=== PATIENT | male | born 1960 | race Caucasian/White ===

== ENCOUNTER 2017-12-16 11:12 | Day surgery (SDC) | payer BC ==
[2017-12-16] MEDS ORDERED: Ropivacaine 0.5% 5 MG/ML 30 ML SDV ONE (12:04)
[2017-12-16] MEDS ORDERED: Iopamidol 408 MG/ML 50 ML SDV ONE (12:04)
[2017-12-16] MEDS ORDERED: Lidocaine 2% 5 ML SDV ONE (12:04)
[2017-12-16] MEDS ORDERED: Betamethasone Acetate/Betamethasone Sod Phosphate 30 MG/5 ML MDV ONE (12:04)
--- NOTE | 2017-12-17 09:23 | OR ---
SURGEON: Manisha Wild D.O. DATE OF PROCEDURE: 12/16/2017 OR STAFF PRESENT: 1. Aniya Bloom RN. 2. Gómez Marin RT. WOUND CLASS: I PREOPERATIVE DIAGNOSES: 1. Lumbar degenerative disk disease. 2. Lumbar radiculopathy. 3. Lumbar spinal stenosis. 4. Lumbar spondylosis. POSTOPERATIVE DIAGNOSES: 1. Lumbar degenerative disk disease. 2. Lumbar radiculopathy. 3. Lumbar spinal stenosis. 4. Lumbar spondylosis. PROCEDURES PERFORMED: 1. Caudal epidural steroid injection. 2. Fluoroscopic guidance for needle placement. 3. Local with oral Valium for sedation. SCREENING QUESTIONS: The patient answered "no" to all of the following questions: 1. Are you allergic to latex? 2. Do you have a bleeding disorder? 3. Do you have any current local or systemic infections? 4. Are you taking any anti-inflammatories or blood thinners? 5. Do you have any joint replacements, heart valve replacements, or a pacemaker? DESCRIPTION OF PROCEDURE: The patient had the procedure thoroughly explained including all possible risks, benefits and alternatives. Consent was signed in my clinic indicating understanding and willingness to proceed. The patient presented to [facility] [place] and was escorted to the dressing room to disrobe and change into a hospital gown. Preoperative vital signs were taken and stable. The patient reported that Valium was taken prior to the procedure. The patient was brought back to the procedure room and placed in the prone position on the procedure room table. A pillow was placed under the hips in order to flatten the lumbar lordosis. The back was prepped with ChloraPrep and sterilely draped. All personnel in the operating room were dressed in appropriate attire including surgical scrubs, head and shoe covers. This was to ensure sterility while in the treatment room. During the time fluoroscopy was in use, all personnel in the operating room wore lead corrales with thyroid collars. Sterile technique was used throughout the procedure. The patient was awake and conversant throughout the procedure. There was no evidence of infection at the site of needle insertion. Skeletal landmarks were identified under fluoroscopy for the caudal epidural. Skin was anesthetized with 2% lidocaine with a sterile 27-gauge 1.5 inch needle. Then a 20-gauge Tuohy epidural needle was placed in the epidural space with loss of resistance technique under fluoroscopic guidance. No heme, cerebrospinal fluid, or paresthesias were noted. Isovue-200 contrast dye was injected in 0.2 cubic centimeter increments and seen to outline the epidural space in both AP and lateral views. There was no intravascular flow pattern observed under live fluoroscopy. Then 12 milligrams of Celestone was slowly injected after negative aspiration. The patient tolerated the procedure well. Vital signs were stable during and after the procedure. The staff escorted the patient to the recovery area and the patient was released in stable condition after a brief stay in the recovery room monitored by the nurse. The patient was given both oral and written discharge and follow up instructions with recommendation to follow up given for 2-3 weeks. The patient voiced understanding including understanding of those signs and symptoms that would require emergency care. The patient knows how to contact the office if there are any additional problems or questions in the meantime. PREOPERATIVE PAIN: 3-9/10 POSTOPERATIVE PAIN: /10 FOLLOW UP: Follow up in the Pain Clinic in 3 weeks. JITENDRA / KWAKU /[id number] JOVANNA
== END 2017-12-16 13:15 | disposition home or self-care (01) ==
LOC: MW.SDS 11:12
PROVIDERS: ATTEND Anesthesiology
DX: M51.16 Intervertebral disc disorders with radiculopathy, lumbar region (principal); M48.061 Spinal stenosis, lumbar region without neurogenic claudication; M47.26 Other spondylosis with radiculopathy, lumbar region; G89.29 Other chronic pain; M54.5 Low back pain; I10 Essential (primary) hypertension; E11.9 Type 2 diabetes mellitus without complications; E66.01 Morbid (severe) obesity due to excess calories; Z68.42 Body mass index [BMI] 45.0-49.9, adult; E78.00 Pure hypercholesterolemia, unspecified; Z79.84 Long term (current) use of oral hypoglycemic drugs; Z79.899 Other long term (current) drug therapy; Z88.8 Allergy status to other drugs, medicaments and biological substances
CPT/HCPCS: 62323; J0702; J2795; Q9966

== ENCOUNTER 2018-05-04 06:51 | Day surgery (SDC) | payer BC ==
[~2018-05-04 06:51] MED LIST: Lactated Ringers 1,000 ML IV SCH
[2018-05-04] MEDS ORDERED: Propofol 200 MG/20 ML SDV ONE (07:37)
[2018-05-04] MEDS ORDERED: Midazolam 1 MG/ML 2 ML SDV ONE (07:37)
[2018-05-04] MEDS ORDERED: fentaNYL 250 MCG/5 ML SDV ONE (07:37)
[2018-05-04] MEDS ORDERED: Lidocaine 1% 0 ML ONE (07:42)
[2018-05-04] MEDS ORDERED: Lidocaine 1% 20 ML MDV ONE (07:44)
--- NOTE | 2018-05-04 07:59 | PCM.PREANE ---
Preanesthetic Assessment - Anesthesia/Transfusion/Family Hx Anesthesia History: Prior Anesthesia Without Reaction Family History of Anesthesia Reaction: No Transfusion History: No Prior Transfusion(s) - Review of Systems General: No Symptoms Pulmonary: No Symptoms Cardiovascular: No Symptoms Gastrointestinal: No Symptoms Neurological: No Symptoms Other: Reports: None - Physical Assessment NPO Status Date: 05/03/18 NPO Status Time: 21:30 O2 Sat by Pulse Oximetry: 95 Respiratory Rate: 18 Vital Signs: Last Vital Signs Temp 95.7 F 05/04/18 07:15 Pulse 76 05/04/18 07:15 Resp 18 05/04/18 07:15 BP 146/91 H 05/04/18 07:15 Pulse Ox 95 05/04/18 07:15 Height: 6 ft 1 in Weight: 158.757 kg ASA Class: 2 Mental Status: Alert & Oriented x3 Airway Class: Mallampati = 2 Dentition: Reports: Normal Dentition ROM/Head Extension: Full Lungs: Clear to Auscultation, Normal Respiratory Effort Cardiovascular: Regular Rate, Regular Rhythm - Allergies Allergies/Adverse Reactions: Allergies Allergy/AdvReac Type Severity Reaction Status Date / Time meloxicam Allergy Rash Verified 04/29/18 10:06 - Anesthesia Plan Pre-Op Medication Ordered: None - Acknowledgements Anesthesia Type Planned: General Anesthesia Pt an Appropriate Candidate for the Planned Anesthesia: Yes Alternatives and Risks of Anesthesia Discussed w Pt/Guardian: Yes Pt/Guardian Understands and Agrees with Anesthesia Plan: Yes Additional Comments: PMH: hld, htn, dm2-on metformin, morbid obesity with bmi=46, denies jolynn sx, PLAN: ga-lma PreAnesthesia Questionnaire HEENT History: Reports: Other (See Below) Other HEENT History: wears glasses Cardiovascular History: Reports: High Cholesterol, Hypertension Respiratory History: Reports: None Gastrointestinal History: Reports: Colon Polyp Other Gastrointestinal History: being treated for colitis Genitourinary History: Reports: None Musculoskeletal History: Reports: Arthritis, Other (See Below) Other Musculoskeletal History: DDD, intermittent back pain Neurological History: Reports: Migraines Psychiatric History: Reports: None Endocrine/Metabolic History: Reports: Obesity/BMI 30+ Other Endocrine/Metabolic History: " pre diabetic" Hematologic History: Reports: None Immunologic History: Reports: None Oncologic (Cancer) History: Reports: None Dermatologic History: Reports: None - Past Surgical History Head Surgeries/Procedures: Reports: None HEENT Surgical History: Reports: Myringotomy w Tube(s) GI Surgical History: Reports: Colonoscopy Musculoskeletal Surgical History: Reports: Carpal Tunnel Other Musculoskeletal Surgeries/Procedures:: hx radha CTR - SUBSTANCE USE Smoking Status *Q: Never Smoker Recreational Drug Use History: No - HOME MEDS Home Medications: Home Meds Hydrochlorothiazide/Lisinopril [Lisinopril/HCTZ 10-12.5 MG] 1 tab PO DAILY 08/01 [History] atorvaSTATin Calcium [Atorvastatin Calcium] 40 mg PO DAILY 08/01/14 [History] Pedi Multivit #22/Vit D3/Vit K [Multivitamins Chewables Tablet] 1 tab CHEW DAILY 02/01/16 [History] Budesonide [Budesonide EC] 3 tab PO DAILY 04/29/18 [History] Diclofenac Sodium [Voltaren] 1 applic TOP ASDIRECTED PRN 04/29/18 [History] Lidocaine/Prilocaine [Lidocaine-Prilocaine Cream] 1 applic TOP ASDIRECTED PRN [History] metFORMIN HCl [Metformin HCl] 500 mg PO BID 04/29/18 [History] - CURRENT (IN HOUSE) MEDS Current Meds: Current Medications Hydrocodone Bitart/Acetaminophen ([place] 325-5 Mg) 1 - 2 tab PO Q4H PRN PRN Reason: Pain Cefazolin Sodium/Dextrose 2 gm (/ Premix) 50 mls @ 100 mls/hr IV ONCALL TONYA Lactated Ringer's (Ringers, Lactated) 1,000 mls @ 100 mls/hr IV ASDIRECTED [facility] Last Admin: 05/04/18 07:20 Dose: 100 mls/hr Discontinued Medications Fentanyl (Sublimaze) Confirm Administered Dose 250 mcg .ROUTE .STK-MED ONE Stop: 05/04/18 07:38 Lidocaine HCl (Xylocaine-Mpf 1%) Confirm Administered Dose 5 mls @ as directed .ROUTE .STK-MED ONE Stop: 05/04/18 07:37 Lidocaine HCl (Xylocaine-Mpf 1%) Confirm Administered Dose 10 mls @ as directed .ROUTE .STK-MED ONE Stop: 05/04/18 07:43 Lidocaine HCl (Xylocaine 1%) Confirm Administered Dose 20 ml .ROUTE .STK-MED ONE Stop: 05/04/18 07:45 Midazolam HCl (Versed 1 Mg/Ml) Confirm Administered Dose 2 mg .ROUTE .STK-MED ONE Stop: 05/04/18 07:38 Propofol (Diprivan 20 Ml) Confirm Administered Dose 200 mg .ROUTE .STK-MED ONE Stop: 05/04/18 07:38
[2018-05-04] MEDS ORDERED: Acetaminophen/HYDROcodone 325-5 MG Tab PO PRN (08:00)
[2018-05-04] MEDS ORDERED: ceFAZolin 2 GM in Premix Bag 1 BAG IV SCH (08:00)
[2018-05-04] MEDS ORDERED: ceFAZolin 1 GM Vial ONE (08:23)
[2018-05-04] MEDS ORDERED: diphenhydrAMINE 50 MG/ML SDV ONE (08:40)
[2018-05-04] MEDS ORDERED: Ketorolac 30 MG/ML SDV ONE (08:40)
[2018-05-04] MEDS ORDERED: Metoclopramide 10 MG/2 ML SDV ONE (08:40)
[2018-05-04] MEDS ORDERED: Ondansetron 4 MG/2 ML SDV ONE (08:40)
--- NOTE | 2018-05-04 09:06 | PCM.OPNOTE ---
- General Post-Op/Procedure Note Date of Surgery/Procedure: 05/04/18 Operative Procedure(s): L knee scope with PLM/PMM Post-Op Diagnosis: DJD left knee, left knee med/lateral meniscus tear Anesthesia Technique: General LMA Primary Surgeon: Toshia Cano Mixing And Molding Machine Operator: Joellen Rothman in mLs: 5 Condition: Good Free Text/Narrative:: tt=15 min #[id number]
--- NOTE | 2018-05-04 09:24 | PCM.POSTAN ---
POST ANESTHESIA ASSESSMENT - MENTAL STATUS Mental Status: Alert, Oriented - RESPIRATORY Respiratory Status: Respiratory Rate WNL - CARDIOVASCULAR CV Status: Pulse Rate WNL - GASTROINTESTINAL GI Status: No Symptoms - PAIN Pain Score: 3 - POST OP HYDRATION Hydration Status: Adequate & Stable - OBSERVATIONS Free Text/Narrative:: The patient has no complaints at this time. There were no apparent anesthetic complications at this time. Discharge to floor per criteria.
--- NOTE | 2018-05-04 10:07 | PCM48HPAN ---
Post Anesthesia Note - EVALUATION WITHIN 48HRS OF ANESTHETIC Vital Signs in Normal Range: Yes Patient Participated in Evaluation: Yes Respiratory Function Stable: Yes Airway Patent: Yes Cardiovascular Function Stable: Yes Hydration Status Stable: Yes Pain Control Satisfactory: Yes Nausea and Vomiting Control Satisfactory: Yes Mental Status Recovered: Yes Resp Rate: 16
[2018-05-04 10:10] VITALS: BP 116/74
--- NOTE | 2018-05-04 15:19 | OR ---
SURGEON: Toshia Cano MD DATE OF PROCEDURE: 05/04/2018 PREOPERATIVE DIAGNOSES: 1. Degenerative joint disease, left knee, tricompartmental. 2. Left knee lateral meniscus tear. POSTOPERATIVE DIAGNOSES: 1. Degenerative joint disease, left knee, tricompartmental. 2. Left knee lateral meniscus tear. 3. Left knee medial meniscus tear. PROCEDURE: Left knee arthroscopy with partial lateral and medial meniscectomy. BAGGAGE AGENT SUPERVISOR: Joellen Rothman RN ANESTHESIA: General. ESTIMATED BLOOD LOSS: 5 mL. TOURNIQUET TIME: 15 minutes. COMPLICATIONS: None. DVT PROPHYLAXIS: Not indicated. IMPLANTS USED: None. BRIEF HISTORY: Bob is a 57-year-old male who has had complaint of progressive left knee pain. He has tried conservative treatment including injections, which have given him short-term relief only. Due to his lack of response to conservative treatment, I did recommend surgical intervention. The risks and goals of the procedure were discussed with the patient and were documented preoperatively. He agreed to proceed. DESCRIPTION OF PROCEDURE: The patient was properly identified and brought to the operating room. He was transferred from the OR cart and placed on the operating room table in supine position. General anesthesia was administered. After adequate anesthesia was obtained, a well-padded tourniquet was applied to the left lower extremity. The left lower extremity was then prepped in standard fashion using ChloraPrep solution. It was then sterilely draped. A time-out was performed to ensure correct site and procedure. Preoperative antibiotics were given. The surgical site had been marked preoperatively. An Esmarch was used to exsanguinate the left lower extremity and the tourniquet was inflated to 250 mmHg. A lateral portal arthrotomy was established. Blunt trocar and cannula were introduced into the suprapatellar pouch. Camera, inflow, and outflow were assembled. No significant synovitis was noted. The patellofemoral joint was then visualized. Diffuse grade 3 chondromalacia was noted. The patella appeared to track centrally. I then extended down the lateral and medial gutter. No loose bodies were identified. Osteophyte formation was noted along the lateral femoral condyle as well as the medial femoral condyle. I then entered the medial compartment. A medial portal arthrotomy was established. A blunt probe was inserted. Extensive degenerative tearing with a small radial tear of the medial meniscus was noted. Using a combination of biters and shaver, this was resected back to a stable remnant. The meniscus was again probed and found to be stable. The chondral surfaces were then inspected. Diffuse grade 3 to grade 4 chondromalacia was noted along the medial femoral condyle. Grade 3 chondromalacia was noted along the medial tibial plateau. Chondroplasty of both of these were performed to remove any loose cartilage fragments. I then entered the notch. Both the ACL and PCL were visualized and probed and found to be intact. I then entered the lateral compartment. Again, noted was degenerative tearing of the lateral meniscus. Using a combination of biters and shaver, this was resected back to a stable remnant. It was again probed and found to be stable. Diffuse grade 3 chondromalacia was noted along the lateral tibial plateau. The lateral femoral condyle showed diffuse grade 2 degenerative findings. I then re-entered the patellofemoral joint. Chondroplasty of the patella was performed. No further loose fragments were noted. Instruments were then removed from the knee. The portal tracts were injected with 1% lidocaine. Xeroform gauze was placed over the wound and a bulky dressing was applied. The tourniquet was then deflated. He was awakened from his anesthetic and transferred back to the operating room cart. He was brought to recovery room in stable condition. All needle and sponge counts were correct. DEWAYNE / KWAKU /[id number]
== END 2018-05-04 10:18 | disposition home or self-care (01) ==
LOC: MW.SDS 06:51
PROVIDERS: ATTEND Orthopaedic Surgery
DX: M23.201 Derangement of unspecified lateral meniscus due to old tear or injury, left knee (principal); M23.204 Derangement of unspecified medial meniscus due to old tear or injury, left knee; M17.12 Unilateral primary osteoarthritis, left knee; M94.262 Chondromalacia, left knee; M25.762 Osteophyte, left knee; I10 Essential (primary) hypertension; E11.9 Type 2 diabetes mellitus without complications; E66.01 Morbid (severe) obesity due to excess calories; Z68.42 Body mass index [BMI] 45.0-49.9, adult; E78.00 Pure hypercholesterolemia, unspecified; Z79.84 Long term (current) use of oral hypoglycemic drugs; Z79.899 Other long term (current) drug therapy; Z88.6 Allergy status to analgesic agent
CPT/HCPCS: 29880; A9270; J0690; J1200; J1885; J2250; J2405; J2704; J2765; J3010; J7120

== ENCOUNTER 2020-02-24 16:35 | Emergency (ER) | payer BC ==
--- NOTE | 2020-02-24 16:59 | EDM.PDOC ---
ED HPI GENERAL MEDICAL PROBLEM - General Chief Complaint: Chest Pain Stated Complaint: REFER FROM CLINIC Time Seen by Provider: 02/24/20 16:50 Source of Information: Reports: Patient History Limitations: Reports: No Limitations - History of Present Illness INITIAL COMMENTS - FREE TEXT/NARRATIVE: Patient is a 59-year-old male who was sent over from clinic. Patient has some chest pain about 6 days ago that started in his left side and radiated to his left shoulder. Pain states he was moving heavy boxes while at work when the pain started he became diaphoretic. The pain subsided and patient did not think anything of it but for the past few days whenever patient has any exertion he does become short of breath. Patient denies any current chest pain nausea vomiting fever chills or lower extremity swelling. PMD states patient presents office today in atrial fibrillation which is new for the patient and also with positive troponins. - Related Data Allergies Allergy/AdvReac Type Severity Reaction Status Date / Time meloxicam Allergy Severe Rash Verified 02/24/20 17:03 Home Meds: Home Meds atorvaSTATin Calcium [Atorvastatin Calcium] 40 mg PO DAILY 08/01/14 [History] Pedi Multivit #22/Vit D3/Vit K [Multivitamins Chewables Tablet] 1 tab CHEW DAILY 02/01/16 [History] metFORMIN HCl [Metformin HCl] 500 mg PO BID 04/29/18 [History] lisinopriL [Lisinopril] 1 tab PO DAILY 10/01/19 [History] Apixaban [Eliquis] 02/24/20 [History] Metoprolol Succinate [Toprol XL 50mg] 02/24/20 [History] Past Medical History HEENT History: Reports: Other (See Below) Other HEENT History: wears glasses Cardiovascular History: Reports: High Cholesterol, Hypertension Respiratory History: Reports: None Gastrointestinal History: Reports: Colon Polyp Other Gastrointestinal History: being treated for colitis Genitourinary History: Reports: None Musculoskeletal History: Reports: Arthritis, Other (See Below) Other Musculoskeletal History: DDD, intermittent back pain Neurological History: Reports: Migraines Psychiatric History: Reports: None Endocrine/Metabolic History: Reports: Obesity/BMI 30+ Other Endocrine/Metabolic History: " pre diabetic" Hematologic History: Reports: None Immunologic History: Reports: None Oncologic (Cancer) History: Reports: None Dermatologic History: Reports: None - Past Surgical History Head Surgeries/Procedures: Reports: None HEENT Surgical History: Reports: Myringotomy w Tube(s) GI Surgical History: Reports: Colonoscopy Musculoskeletal Surgical History: Reports: Carpal Tunnel Other Musculoskeletal Surgeries/Procedures:: hx radha CTR Social & Family History - Family History Family Medical History: No Pertinent Family History - Caffeine Use Caffeine Use: Reports: None ED ROS GENERAL - Review of Systems Review Of Systems: See Below Constitutional: Reports: No Symptoms HEENT: Reports: No Symptoms Respiratory: Reports: No Symptoms Cardiovascular: Reports: No Symptoms Endocrine: Reports: No Symptoms GI/Abdominal: Reports: No Symptoms : Reports: No Symptoms Musculoskeletal: Reports: No Symptoms Skin: Reports: No Symptoms Neurological: Reports: No Symptoms Psychiatric: Reports: No Symptoms Hematologic/Lymphatic: Reports: No Symptoms Immunologic: Reports: No Symptoms ED EXAM, GENERAL - Physical Exam Exam: See Below Exam Limited By: No Limitations General Appearance: Alert, No Apparent Distress Eye Exam: Bilateral Eye: EOMI, PERRL Head: Atraumatic Respiratory/Chest: No Respiratory Distress, Lungs Clear Cardiovascular: Normal Peripheral Pulses, Regular Rate, Rhythm GI/Abdominal: Normal Bowel Sounds, Soft, Non-Tender Extremities: Normal Inspection, Normal Range of Motion, Non-Tender Neurological: Alert, Oriented, CN II-XII Intact, Normal Cognition #1 Interpretation EKG Date: 02/24/20 Time: 16:50 Rhythm: A-Fib Rate (Beats/Min): 96 ST-T: Normal Course - Vital Signs Last Recorded V/S: Last Vital Signs Temp 96.4 F L 02/24/20 16:53 Pulse 131 H 02/24/20 16:53 Resp 18 02/24/20 16:53 BP 142/93 H 02/24/20 16:53 Pulse Ox 96 02/24/20 16:53 - Orders/Labs/Meds Orders: Active Orders 24 hr Category Date Time Status CORONAVIRUS COVID-19 JAKI [MOLEC] Stat Lab 02/24/20 18:30 Received Labs: Laboratory Tests 02/24/20 02/24/20 Range/Units 17:57 17:57 WBC 5.89 (4.0-11.0) K/uL RBC 5.12 (4.50-5.90) M/uL Hgb 15.1 (13.0-17.0) g/dL Hct 46.3 (38.0-50.0) % MCV 90.4 (80.0-98.0) fL MCH 29.5 (27.0-32.0) pg MCHC 32.6 (31.0-37.0) g/dL RDW Std Deviation 42.4 (28.0-62.0) fl RDW Coeff of [place] 13 (11.0-15.0) % Plt Count 209 (150-400) K/uL MPV 10.00 (7.40-12.00) fL Neut % (Auto) 59.6 (48.0-80.0) % Lymph % (Auto) 30.1 (16.0-40.0) % [place] % (Auto) 9.3 (0.0-15.0) % Eos % (Auto) 0.8 (0.0-7.0) % Baso % (Auto) 0.2 (0.0-1.5) % Neut # (Auto) 3.5 (1.4-5.7) K/uL Lymph # (Auto) 1.8 (0.6-2.4) K/uL [place] # (Auto) 0.6 (0.0-0.8) K/uL Eos # (Auto) 0.1 (0.0-0.7) K/uL Baso # (Auto) 0.0 (0.0-0.1) K/uL Nucleated RBC % 0.0 /100WBC Nucleated RBCs # 0 K/uL Sodium 141 (136-148) mmol/L Potassium 4.2 (3.5-5.1) mmol/L Chloride 106 (98-107) mmol/L Carbon Dioxide 29.6 (21.0-32.0) mmol/L BUN 17 (7.0-18.0) mg/dL Creatinine 1.2 (0.8-1.3) mg/dL Est Cr Clr Drug Dosing 74.55 mL/min Estimated GFR (MDRD) > 60.0 ml/min Glucose 114 H (74-106) mg/dL Calcium 9.1 (8.5-10.1) mg/dL Total Bilirubin 0.5 (0.2-1.0) mg/dL AST 15 (15-37) IU/L ALT 28 (14-63) IU/L Alkaline Phosphatase 74 (46-116) U/L Creatine Kinase 81 (26-308) U/L Troponin I 0.243 H* (0.000-0.056) ng/mL Total Protein 7.1 (6.4-8.2) g/dL Albumin 3.7 (3.4-5.0) g/dL Globulin 3.4 (2.6-4.0) g/dL Albumin/Globulin Ratio 1.1 (0.9-1.6) - Re-Assessments/Exams Free Text/Narrative Re-Assessment/Exam: 02/24/20 19:09 Patient to be signed out to oncoming physician. Patient has positive troponin which we are aware from PMD. Patient will be transferred likely to [facility]. We are just waiting for patient's Covid test Departure - Departure Time of Disposition: 19:10 Disposition: DC/Tfer to Acute Hospital 02 Condition: Good Clinical Impression: Afib - Discharge Information *PRESCRIPTION DRUG MONITORING PROGRAM REVIEWED*: Not Applicable *COPY OF PRESCRIPTION DRUG MONITORING REPORT IN PATIENT INGRID: Not Applicable Referrals: Micha Lam MD [Primary Care Provider] - Forms: ED Department Discharge Sepsis Event Note (ED) - Focused Exam Vital Signs: Vital Signs Temp Pulse Resp BP Pulse Ox 02/24/20 16:53 96.4 F L 131 H 18 142/93 H 96 - My Orders Last 24 Hours: My Active Orders 02/24/20 18:30 CORONAVIRUS COVID-19 JAKI [MOLEC] Stat - Assessment/Plan Last 24 Hours: My Active Orders 02/24/20 18:30 CORONAVIRUS COVID-19 JAKI [MOLEC] Stat Plan: Is a 59-year-old male who was sent over from clinic after having chest pain that started 6 days ago. Patient was found to be in A. fib and also have positive troponins. Patient has a heart score of 5. Will send labs EKG, cxr and troponins.
--- NOTE | 2020-02-24 17:42 | CR ---
Indication: Chest pain Comparison: None available. Technique: PA and Lateral views chest Findings: There is hyperinflation chronic interstitial change without evidence dense consolidation. There is no pneumothorax or pleural effusion. The cardiac silhouette is mildly prominent. The bony thorax is grossly intact. Impression: Hyperinflation and chronic interstitial change without evidence dense consolidation. Dictated by Nick Lane MD @ Feb 24 2020 5:39PM Signed by Dr. Nick Lane @ Feb 24 2020 5:41PM
[2020-02-24 18:31] LABS: BLOOD UREA NITROGEN,BUN 17 mg/dL (7.0-18.0); CARBON DIOXIDE,CO2 29.6 mmol/L (21.0-32.0); CHLORIDE,CL 106 mmol/L (98-107); GLUCOSE RANDOM 114 mg/dL (74-106); POTASSIUM,K 4.2 mmol/L (3.5-5.1); SODIUM,NA 141 mmol/L (136-148)
[2020-02-24] MEDS ORDERED: Aspirin 81 MG Tab.Chew PO ONE (19:13)
[2020-02-24] MEDS ORDERED: Heparin Sodium 5,000 Units/ML Vial IVPUSH ONE (19:55)
[2020-02-24] MEDS ORDERED: Heparin Sodium/0.45% NaCl 500 ML IV SCH ×2 (20:00→20:30)
[2020-02-24] MEDS: Heparin Sodium/0.45% NaCl 500 ML ONE ×2 (20:08→20:20)
[2020-02-24 22:15] VITALS: BP 120/79; PULSE 99
== END 2020-02-24 23:00 ==
LOC: MW.ED 16:35
DX: I48.91 Unspecified atrial fibrillation (principal); I10 Essential (primary) hypertension; E78.00 Pure hypercholesterolemia, unspecified; E66.9 Obesity, unspecified; Z68.42 Body mass index [BMI] 45.0-49.9, adult; Z20.828 Contact with and (suspected) exposure to other viral communicable diseases; Z88.8 Allergy status to other drugs, medicaments and biological substances; Z79.01 Long term (current) use of anticoagulants; Z79.84 Long term (current) use of oral hypoglycemic drugs; Z79.899 Other long term (current) drug therapy
CPT/HCPCS: 36415; 71046; 80053; 82550; 84484; 85025; 85610; 85730; 87635; 93005; 96374; 99285; A9270; J1644; U0002